=== PATIENT | male | born 1990 | race Caucasian/White ===

== ENCOUNTER 2020-11-09 05:40 | Emergency (ER) | payer BC, SELFPAY ==
[2020-11-09 05:49] VITALS: BP 144/92; PULSE 69; RESP 17; TEMP 36.1; O2SAT 98; BMI 34.7
--- NOTE | 2020-11-09 06:33 | HMH.EDGENADL ---
ED Disposition Clinical Impression: Eye foreign body Qualifiers: Encounter type: initial encounter Laterality: left Qualified Code(s): T15.92XA - Foreign body on external eye, part unspecified, left eye, initial encounter Disposition: Home, Self-Care Condition on Discharge: Good Instructions: DI for Eye Pain Referrals: PCP,No [Primary Care Provider] - - Critical Care Critical Care Time: No Attestation: On 11/09/20, the high probability of a clinically significant, sudden or life threatening deterioration of the following system(s) required my full and direct attention, intervention and personal management. The time I documented below is in addition to time spent performing reported procedures but includes the following listed in this critical care notation. Medical Decision Making - Medical Records Medical records reviewed: Yes: I reviewed the patient's medical records. - Castro Inquiry Pt receiving controlled substance: No Vital Signs: 11/09/20 05:49 Temperature 97.0 F L Temperature Source Oral Pulse Rate [Right Brachial] 69 Respiratory Rate 17 Blood Pressure [Right Arm] 144/92 H Blood Pressure Mean [Right Arm] 109 Blood Pressure Source [Right Arm] Automatic Cuff Blood Pressure Position [Right Arm] Sitting 02 Sat by Pulse Oximetry 98 Oxygen Delivery Method Room Air Medical Decision Narrative: 30-year-old male presenting for foreign object in eye. Patient has foreign sensation left eye, on examination there is no rust ring or large foreign object noted. Patient states he feel like this is in his upper eyelid, eyelids were everted no foreign object was identified. Patient had fluorescein stain performed, no evidence of of Abhinav sign, corneal abrasion, corneal ulcer. Patient had eye flushed with approximately 2 to 300cc of water, patient tolerated procedure well. Patient symptoms had improved after topical anesthetic as well as flushing of eye. Patient had return precautions provided and was discharged home General Adult HPI - General Chief complaint: Eye Problems Stated complaint: FB left eye Time Seen by Provider: 11/09/20 06:00 Mode of Arrival: Family Vehicle Limitations: No Limitations Description of Symptoms (Recalled from ER Triage Doc. by RN): pt states he has left eye pain since about 2100 last night; unsure what happened. 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 Patient did not rinse his eye out, he had some eyedrops placed by mother at bedside. Patient states that he does not have significant pain, two or 3 out of 10, patient has not had this sensation before. Denies any visual acuity deficits, no blurry vision, does not wear contacts or glasses. - Related Data Home Medications Medication Instructions Recorded Confirmed No Known Home Medications 11/09/20 11/09/20 Allergies Allergy/AdvReac Type Severity Reaction Status Date / Time No Known Allergies Allergy Unverified 08/30/17 14:53 [facility] History - Hepatitis A Screen Drug use history?: No High risk sexual behaviors?: No History of sexually transmitted infection?: No Currently employed?: No Childcare worker?: No Do you have indoor plumbing?: Yes Do you have electricity?: Yes Attestation statement:: This patient has been screened for Hepatitis A risk factors. I have reviewed the patient's past medical history: Yes ROS Obtained: Yes All systems reviewed & no additional complaints Physical Exam - General General appearance: alert, in no apparent distress - Eye Eye exam: Present: normal appearance, PERRL, EOMI, conjunctival injection,
[2020-11-09 06:40] VITALS: BP 135/74; PULSE 73; RESP 18; TEMP 36.3; O2SAT 98
== END 2020-11-09 06:49 | disposition home or self-care (01) ==
PROVIDERS: Emergency Provider Emergency Medicine
DX: T15.92XA Foreign body on external eye, part unspecified, left eye, initial encounter (principal)
CPT/HCPCS: 99281

== ENCOUNTER → 2021-08-27 07:29 | Outpatient (CLI) | payer BC, SELFPAY ==
--- NOTE | 2021-08-27 07:40 | MR_ITS ---
PROCEDURE: MR THORACIC SPINE WO CON CLINICAL INDICATION: PAIN IN THORACIC SPINE COMPARISON: CR LS5 LUMBAR SPINE 5 VIEWS from 11/27/2015 TECHNIQUE: Routine multiplanar multi echo sequences are performed without gadolinium enhancement. FINDINGS: Normal alignment. No acute fracture or dislocation. Minimal endplate irregularity involves T8 through T12 vertebral bodies. There is slight loss of height anteriorly of T12 but no abnormal signal intensity that would indicate an acute fracture. This was present on a older radiograph 11/27/2015. No disc herniations. No destructive process or paraspinal mass. There is mild facet and ligamentum hypertrophic change at T9-T10, T10-T11, and T11-T12. There is minimal left lateral recess narrowing at T10-T11. No significant foraminal narrowing. No extradural mass. The spinal cord has an unremarkable appearance. IMPRESSION: Mild degenerative changes as described above. No acute finding. No disc herniation or canal stenosis. No acute fracture. Dictated by: Nitin Coyne MD 08/28/2021 08:36 Nitin Coyne MD in [place] 08/28/2021 08:36
== END ==
PROVIDERS: Visit Provider Family Medicine
DX: M54.6 Pain in thoracic spine (principal); R52 Pain, unspecified
CPT/HCPCS: 72146

== ENCOUNTER → 2021-08-28 14:01 | Outpatient (CLI) | payer BC, SELFPAY | PROVIDERS: Visit Provider Nurse Practitioner | DX: Z20.822 Contact with and (suspected) exposure to COVID-19 (principal) | CPT/HCPCS: C9803; U0003; U0005 ==

== ENCOUNTER → 2021-08-31 20:43 | Outpatient (CLI) | payer BC, SELFPAY | PROVIDERS: Visit Provider Nurse Practitioner Family | DX: Z20.822 Contact with and (suspected) exposure to COVID-19 (principal); J02.9 Acute pharyngitis, unspecified | CPT/HCPCS: C9803; U0003; U0005 ==

== ENCOUNTER 2021-09-01 03:37 | Inpatient (IN) | payer BC, SELFPAY ==
[2021-09-01] VITALS (31 sets, daily range): BP systolic 124–160; BP diastolic 70–101; PULSE 60–88; RESP 16–20; TEMP 36.9–37.2; O2SAT 95–100; BMI 31.9; BMI 32.8
--- NOTE | 2021-09-01 | IR_ITS ---
APPROVED REPORT Patient Location: Outpatient Plant Inspector: ALBERTO Lee RT (R) PROCEDURES Left heart catheterization Left ventriculogram Selective coronary angiogram INDICATION Syncope accompanied by high risk troponin Informed consent was obtained prior to the procedure. COMPLICATIONS NONE Estimated Blood Loss: LESS THAN 10 ML TECHNIQUE One percent lidocaine used to anesthetize the right anterior aspect of the wrist. The right radial artery was accessed via the Seldinger technique. A 6 [place] sheath was placed in the right radial artery. 2.5 mg of verapamil, 800 mcg of nitroglycerin, 1mg Lidocaine and 5000 U Heparin were given through the arterial sheath. The trap catheter was also used to perform left heart catheterization, left ventriculogram and selective coronary angiogram. At the end of the procedure the sheath was removed good hemostasis was achieved using Traclet band, patient was transferred to the postop holding area in stable condition. ANGIOGRAPHIC RESULTS The left main artery Normal The left anterior descending artery Normal The circumflex artery Nondominant normal The right coronary artery Is a dominant vessel and has an anterior takeoff but otherwise angiographically normal The FARFAN ventriculogram reveals Normal 65% The left ventricular end-diastolic pressure Severely elevated at 30 to 35 mmHg IMPRESSION No angiographic evidence of atherosclerosis Anterior takeoff involving the dominant right coronary artery which is suggestive of a malignant course which could be the etiology of patient's syncope and elevated troponin Normal ejection fraction Severely elevated EDP consistent with diastolic dysfunction 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 Patient be admitted to the hospital and observed overnight and will undergo coronary artery CTA in the morning to determine if the right coronary artery has a malignant course 2. Give bisoprolol 10 mg this evening in order to achieve bradycardia for better diagnostic yield of the CTA 3. Admission with telemetry monitoring Electronically signed by : Ford Booker MD 09/01/2021 13:11:16
--- NOTE | 2021-09-01 03:54 | XR_ITS ---
PROCEDURE INFORMATION: Exam: XR Chest Exam date and time: 09/01/2021 3:54 AM Age: 31 years old Clinical indication: Patient HX: Chills, diarrhea, cough since last Tuesday. Multiple covid tests, neg results. Flu/strep neg per patient TECHNIQUE: Imaging protocol: XR of the chest. Views: 2 views. COMPARISON: CR CXR2 CHEST-AP VIEW ONLY 11/27/2015 7:25 AM FINDINGS: Lungs: Unremarkable. No consolidation. Pleural spaces: Unremarkable. No pleural effusion. No pneumothorax. Heart/Mediastinum: Unremarkable. No cardiomegaly. Bones/joints: Unremarkable. IMPRESSION: No acute findings.
--- NOTE | 2021-09-01 03:54 | ECG_ITS ---
APPROVED REPORT Exam: Resting ECG HR:81 bpm ECG Measurements Heart Rate 81 AXES MT 176 P 47 QRSd 72 QRS 45 QT 336 T 49 QTc 390 Conclusion Normal sinus rhythm Late r wave progression Abnormal ECG Electronically signed by : Calvin Samaniego MD 09/01/2021 21:01:35
[2021-09-01 04:04] LABS: MANUAL DIFFERENTIAL MANUAL DIFFERENTIAL (MANUAL DIFF)
[2021-09-01 04:10] LABS: Basophils % 0.6 % (0.1-2.0); Eosinophils # 0.1 K/mm3 (0.0-0.4); Hematocrit 45.3 % (42.0-52.0); Hemoglobin 15.8 g/dL (14.1-18.0); Lymphocytes # 1.5 K/mm3 (0.7-4.5); Lymphocytes % 21.5 % (10-50); Mean Corpuscular Hemoglobin 31.2 pg (27.0-31.2); Mean Corpuscular Volume 89.3 fl (80-94); Mean Platelet Volume 9.5 fl (7.4-10.4); Monocytes # 0.5 K/mm3 (0.1-1.0); Neutrophils # 4.9 K/mm3 (1.8-7.8); Neutrophils % 69.8 % (37.0-80.0); Platelet Count 177 K/mm3 (142-424); Red Blood Count 5.07 M/mm3 (4.60-6.20); Red Cell Distribution Width 12.9 % (11.5-17.5); White Blood Count 7.1 K/mm3 (4.8-10.8)
[2021-09-01 04:11] LABS: Alanine Aminotransferase 143 U/L (12-78); Albumin Level 4.2 g/dl (3.5-5.0); Albumin/Globulin Ratio 1.4 (1.1-1.8); Alkaline Phosphatase 67 U/L (38-126); Anion Gap 10.5 mEq/L (5-15); Aspartate Amino Transferase 76 U/L (17-59); Bilirubin,Total 1.1 mg/dl (0.2-1.3); Blood Urea Nitrogen 13 mg/dl (9-20); Calcium 8.8 mg/dl (8.4-10.2); Carbon Dioxide 30 mmol/L (22.0-30.0); Chloride 99 mmol/L (98-107); Creatinine Clearance Estimated 169 mL/min (50-200); Estimated Glomerular Filt Rate 88 ml/min (>60); GFR (African American) 107 ML/MIN (>60); Globulin 2.9 g/dL (1.3-3.2); Glucose 120 mg/dl (74-100); Potassium 3.5 mmoL/L (3.5-5.1); Sodium 136 mmol/L (136-145); Total Protein,Serum 7.1 g/dl (6.3-8.2)
[2021-09-01 04:21] LABS: Lactic Acid 0.6 mmol/L (0.7-2.1)
[2021-09-01 04:23] LABS: Troponin I 0.15 ng/ml (0.00-0.034)
[2021-09-01 04:51] LABS: Adenovirus F 40/41, stool Not Detected (NotDetected); Campylobacter Not Detected (NotDetected); Clostridium Difficile A/B, PCR Not Detected (NotDetected); Cryptosporidium Not Detected (NotDetected); Cyclospora Cayetanesis Not Detected (NotDetected); Entamoeba histolytica Not Detected (NotDetected); Enteroaggregative E coli Not Detected (NotDetected); Enteropathogenic E coli Not Detected (NotDetected); Enterotoxigenic E coli Not Detected (NotDetected); Giardia lamblia Not Detected (NotDetected); Microscopic, Urine URINE MICROSCOPIC (MICROSCOPIC); Norovirus Not Detected (NotDetected); Plesimonas Shigalloides, PCR Not Detected (NotDetected); Rotavirus A Not Detected (NotDetected); Salmonella, PCR Not Detected (NotDetected); Sapovirus Not Detected (NotDetected); Shiga-like toxin E coli Not Detected (NotDetected); Shigella Enterovasive E coli Not Detected (NotDetected); Vibrio Cholerae Not Detected (NotDetected); Vibrio, PCR Not Detected (NotDetected); Yersinia Entercolitica, PCR Not Detected (NotDetected)
[2021-09-01 05:01] LABS: Appearance,Urine CLEAR (Clear); Bilirubin,Urine Negative (Negative); Blood, Urine TRACE-L (Negative); Color,Urine DK YELLOW (Yellow); Glucose,Urine (UA) Negative (Negative); Ketones,Urine Negative (Negative); Leukocyte Esterase,Urine Negative (Negative); Nitrate,Urine Negative (Negative); Protein,Urine Negative (Negative); Specific Gravity, Urine 1.025 (1.005-1.030); Urobilinogen,Urine 0.2 EU/dl (0.2)
[2021-09-01 05:37] LABS: Bacteria,Urine Trace /lpf; WBC,Urine Occasional #/hpf (0-3)
[2021-09-01 06:02] LABS: Eosinophils % 2 % (0-3); Lymphocytes % 25 % (10-50); Monocytes % 2 % (2-9); Neutrophils % 70 % (42-76); Platelet Estimate Normal; RBC Morphology Normal; Total Cells Counted 100
--- NOTE | 2021-09-01 06:09 | HMH.EDCP ---
ED Disposition Clinical Impression: Elevated troponin, Vasovagal episode, Enteritis due to astrovirus Disposition: Admitted as Observation Condition on Discharge: Good - Critical Care Critical Care Time: No Attestation: On 09/01/21, the high probability of a clinically significant, sudden or life threatening deterioration of the following system(s) required my full and direct attention, intervention and personal management. The time I documented below is in addition to time spent performing reported procedures but includes the following listed in this critical care notation. Medical Decision Making - Medical Records Medical records reviewed: Yes: I reviewed the patient's medical records. - Castro Inquiry Pt receiving controlled substance: No Vital Signs: 09/01/21 03:40 09/01/21 04:01 09/01/21 04:41 Temperature 98.9 F Temperature Source Oral Pulse Rate 85 84 Pulse Rate [Apical] 80 Respiratory Rate 18 Blood Pressure 133/74 129/75 Blood Pressure [Right Arm] 136/80 Blood Pressure Mean Blood Pressure Mean [Right Arm] 98 Blood Pressure Source [Right Arm] Automatic Cuff Blood Pressure Position [Right Arm] Supine 02 Sat by Pulse Oximetry 99 97 97 Oxygen Delivery Method Room Air Room Air Room Air 09/01/21 05:00 09/01/21 07:16 09/01/21 07:30 Temperature Temperature Source Pulse Rate 87 80 77 Pulse Rate [Apical] Respiratory Rate Blood Pressure 138/74 146/82 H 148/80 H Blood Pressure [Right Arm] Blood Pressure Mean Blood Pressure Mean [Right Arm] Blood Pressure Source [Right Arm] Blood Pressure Position [Right Arm] 02 Sat by Pulse Oximetry 99 98 98 Oxygen Delivery Method Room Air 09/01/21 08:00 09/01/21 08:30 09/01/21 09:00 Temperature Temperature Source Pulse Rate 74 73 68 Pulse Rate [Apical] Respiratory Rate 16 16 16 Blood Pressure 140/79 160/82 H 142/75 H Blood Pressure [Right Arm] Blood Pressure Mean 100 103 97 Blood Pressure Mean [Right Arm] Blood Pressure Source [Right Arm] Blood Pressure Position [Right Arm] 02 Sat by Pulse Oximetry 98 95 99 Oxygen Delivery Method Room Air Room Air Room Air 09/01/21 09:30 09/01/21 11:48 Temperature Temperature Source Pulse Rate 79 65 Pulse Rate [Apical] Respiratory Rate 18 18 Blood Pressure 143/71 H 144/77 H Blood Pressure [Right Arm] Blood Pressure Mean 92 86 Blood Pressure Mean [Right Arm] Blood Pressure Source [Right Arm] Blood Pressure Position [Right Arm] 02 Sat by Pulse Oximetry 97 100 Oxygen Delivery Method Room Air Room Air - Lab Data Lab results reviewed: Yes: I reviewed the patient's lab results. Lab Results 09/01/21 03:50: SARS-CoV-2 (PCR) Not detected, Influenza A Untype (PCR) Not detected, Influenza Type B (PCR) Not detected 09/01/21 03:56: WBC 7.1, RBC 5.07, Hgb 15.8, Hct 45.3, MCV 89.3, MCH 31.2, MCHC 35.0, RDW 12.9, Plt Count 177, MPV 9.5, Neut % (Auto) 69.8, Lymph % (Auto) 21.5, [place] % (Auto) 7.0, Eos % (Auto) 1.0, Baso % (Auto) 0.6, Neut # (Auto) 4.9, Lymph # (Auto) 1.5, [place] # (Auto) 0.5, Eos # (Auto) 0.1, Baso # (Auto) 0.0, Total Counted 100, Neutrophils % (Manual) 70, Lymphocytes % (Manual) 25, Monocytes % (Manual) 2, Eosinophils % (Manual) 2, Basophils % (Manual) 1.0, Platelet Estimate Normal, RBC Morphology Normal 09/01/21 03:56: Sodium 136, Potassium 3.5, Chloride 99, Carbon Dioxide 30, Anion Gap 10.5, BUN 13, Creatinine 1.00, Estimated Creat Clear 169, Estimated GFR 88, Est GFR ( Amer) 107, Glucose 120 H, Calcium 8.8, Total Bilirubin 1.1, AST 76 H, ALT 143 H, Alkaline Phosphatase 67, Troponin I 0.15 H, Total Protein 7.1, Albumin 4.2, Globulin 2.9, Albumin/Globulin Ratio 1.4 09/01/21 04:03: Lactate 0.6 L 09/01/21 04:41: Urine Color Dk yellow, Urine Appearance Clear, Urine pH 6.0, Ur Specific [place] 1.025, Urine Protein Negative, Urine Glucose (UA) Negative, Urine Ketones Negative, Urine Blood Trace-l, Urine Nitrate Negative, Urine Bilirubin
[2021-09-01 06:22] LABS: Coronavirus 19, PCR Not Detected (NotDetected); Influenza A, PCR Not Detected (NotDetected); Influenza B, PCR Not Detected (NotDetected)
[2021-09-01 07:18] LABS: Astrovirus Detected (NotDetected)
--- NOTE | 2021-09-01 07:35 | PC.NURSE ---
Pt is resting comfortably in bed.
[2021-09-01 08:19] LABS: Troponin I 0.31 ng/ml (0.00-0.034)
--- NOTE | 2021-09-01 08:21 | PC.NURSE ---
notified ER MD Carroll) of critical troponin
--- NOTE | 2021-09-01 08:28 | CA_ITS ---
APPROVED REPORT EXAM: Comprehensive 2D, Doppler, and color-flow Echocardiogram Cloth Napping Supervisor: MALLORIE Romero, RVS Ht: 6 ft 1 in Wt: 242lbs BSA: 2.33 BP: 160/82 mmHg Indications: Fever, Chills, Diarrhea, Syncope, Family hx-HTN 2D Dimensions Left Atrium 3.55 cm LA Volume 33.00 mL LVOT 1.98 cm (M/F) 1.5-2.5 LA Volume Index 14.20 mL/m2 (M/F) 16-34 M-Mode Dimensions RVDd 2.71 cm (0.9-2.6) LA Diam 3.03 cm (1.9-4.0) LVDd 4.35 cm (3.5-5.7) Ao Diam 2.46 cm (2.0-3.7) LVDs 2.78 cm (3.5-5.7) IVSd 1.15 cm (0.6-1.1) PWd 0.98 cm (0.6-1.1) EF (Teich) 66.70% EPSs 0.36 cm FS 36.70% EDV (Teich) 87.20 mL TAPSE 2.26 (<1.7) ESV (Teich) 29.00 mL LV Diastology E Decel Time 120.00 (160-240 msec) E/A Ratio 1.98 MED E' 11.50 (< 7 cm/sec) MED A' 6.40 cm/s E'/MED E' Ratio 8.75 (>14) LAT E' 21.10 (<10 cm/sec) E/LAT E' Ratio 4.77 (>14) Aortic Valve LVOT Max 99.00 (70-110 cm/s) LVOT VTI 20.14 cm AoV Peak Gabe. 130.00 (50-130 cm/s) AO Peak GR. 6.80 mmHg AO Mean GR. 3.40 (<5 mmHg) AO VTI 26.77 (18-25 cm) SAM (VTI) 2.32 (2.5-4.5 cm2) Mitral Valve MV E Max Gabe. 101.00 (40-130 cm/s) MV A Velocity 51.00 (40-130 cm/s) E/A Ratio 1.98 MV Decel. Time 120.00 (160-240 ms) MV PHT 35.00 ms Pulmonary Valve PV Peak Velocity 98.00 (50-150 cm/s) Left Ventricle Left atrium is normal size, left ventricle is normal size, there is no concentric left ventricular hypertrophy, visually estimated ejection fraction 55% with no regional wall motion abnormality, diastolic parameters are within normal range. Right Ventricle Right atrium and right ventricle are normal size and contractility. Aortic Valve Aortic valve is grossly normal, there is no aortic stenosis or aortic insufficiency. Mitral Valve Mitral valve grossly normal, there is trace mitral regurgitation. Tricuspid Valve Tricuspid valve grossly normal, there is trace tricuspid regurgitation, tricuspid regurgitation jet velocity is inadequate for calculation of the right ventricular systolic pressure. Pulmonic Valve Pulmonic valve is poorly visualized. Great Vessels Aortic root is normal size. Inferior vena cava normal size normal inspiratory collapse. Pericardium No significant pericardial effusion noted. Conclusion 1. Normal left ventricular size, preserved left ventricular systolic function, visually estimated ejection fraction 55% with no regional wall motion abnormality, diastolic parameters are within normal range. 2. Trace mitral and tricuspid regurgitation. 3. No significant pericardial effusion noted. 4. Inferior vena cava is normal size with normal inspiratory collapse. Electronically signed by : aMndeep Willis MD 09/01/2021 19:50:53
--- NOTE | 2021-09-01 09:20 | PC.NURSE ---
maria antonia jackson for cardiology seeing pt
[2021-09-01 09:25] LABS: Creatine Kinase 56 U/L (55-170)
[2021-09-01 09:30] LABS: C-Reactive Protein 15.6 mg/L (0-4)
--- NOTE | 2021-09-01 09:32 | HMH.CNCARD ---
History of Present Illness Consult date: 09/01/21 Requesting physician: Josias Parker Chief complaint: Elevated troponins History of present illness: 31-year-old female presented to the emergency room after a syncopal episode in his bathroom this morning. Patient states while getting ready for work this a.m., he passed out while he was sitting on the toilet. Patient states he was only out for a few seconds per his girlfriend. Patient states for the past few days he has been complaining of chills and has had a productive cough. Cough has been accompanied with low-grade fever. Patient states he has had a negative Covid and strep test. Patient denies chest pain, tightness or pressure. Patient denies shortness of breath. No swelling noted of the lower extremity. Patient has no known history of coronary artery disease. Patient states he does have history of hypertension in which he does not take antihypertensives medications. Patient states no significant family history of coronary disease. Patient denies tobacco use. Patient states occasional alcohol consumption. EKG revealed normal sinus rhythm with a heart rate of 81 bpm. Blood pressure stable. Lab reveals elevated LFTs. Serial troponin x1 noted at 0.15. Second serial troponin was noted as 0.31. Chest x-ray reveals no acute findings. CBC is within normal values. Preliminary echocardiogram reveals EF greater than 55% with slight LVH. Waiting on official echocardiogram result. Pending on the echocardiogram results, medication and treatment therapies may be recommended. ED physician has ordered additional lab testing such as ESR and CRP. [facility] History I have reviewed the patient's past medical history: Yes *Have you ever received a pneumonia vaccine?: No *Have you received a flu vaccine this season?: No Other Surgeries: Yes: No Previous Surgery - *Social History Smoking Status: Never smoker Tobacco Type: smokeless tobacco Alcohol Intake: current Alcohol Intake Frequency:: a few times a week *Occupational Status:: employed *Travel in the last 8 weeks: Inside the [place] Family Hx:: Non-contributory Meds Home Medications Medication Instructions Recorded Confirmed Type cyclobenzaprine 10 mg tablet 10 mg PO tab 08/28/21 08/31/21 History ibuprofen 800 mg tablet 800 mg PO tab 08/28/21 08/31/21 History tizanidine 4 mg capsule 4 mg PO cap 08/28/21 08/31/21 History Allergies Allergy/AdvReac Type Severity Reaction Status Date / Time No Known Allergies Allergy Unverified 08/31/21 18:32 Exam Vital signs and Labs for Last 24 Hours: Temp Pulse Resp BP Pulse Ox 98.9 F 77 18 148/80 H 98 09/01/21 03:40 09/01/21 07:30 09/01/21 03:40 09/01/21 07:30 09/01/21 07:30 Laboratory Results - last 24 hr 09/01/21 03:50: SARS-CoV-2 (PCR) Not detected, Influenza A Untype (PCR) Not detected, Influenza Type B (PCR) Not detected 09/01/21 03:56: WBC 7.1, RBC 5.07, Hgb 15.8, Hct 45.3, MCV 89.3, MCH 31.2, MCHC 35.0, RDW 12.9, Plt Count 177, MPV 9.5, Neut % (Auto) 69.8, Lymph % (Auto) 21.5, [place] % (Auto) 7.0, Eos % (Auto) 1.0, Baso % (Auto) 0.6, Neut # (Auto) 4.9, Lymph # (Auto) 1.5, [place] # (Auto) 0.5, Eos # (Auto) 0.1, Baso # (Auto) 0.0, Total Counted 100, Neutrophils % (Manual) 70, Lymphocytes % (Manual) 25, Monocytes % (Manual) 2, Eosinophils % (Manual) 2, Basophils % (Manual) 1.0, Platelet Estimate Normal, RBC Morphology Normal 09/01/21 03:56: Sodium 136, Potassium 3.5, Chloride 99, Carbon Dioxide 30, Anion Gap 10.5, BUN 13, Creatinine 1.00, Estimated Creat Clear 169, Estimated GFR 88, Est GFR ( Amer) 107, Glucose 120 H, Calcium 8.8, Total Bilirubin 1.1, AST 76 H, ALT 143 H, Alkaline Phosphatase 67, Troponin I 0.15 H, Total Protein 7.1, Albumin 4.2, Globulin 2.9, Albumin/Globulin Ratio 1.4 09/01/21 04:03: Lactate 0.6 L 09/01/21 04:41: Urine Color Dk yellow, Urine Appearance Clear, Urine pH 6.0, Ur Specific [place] 1.025, Urine Protein Negative, Urine Glu
[2021-09-01 09:44] LABS: Procalcitonin 0.267 ng/mL (0.0-2.0)
[2021-09-01 09:49] LABS: Erythrocyte Sedimentation Rate 20 mm/hr (0-15)
--- NOTE | 2021-09-01 10:09 | PC.NURSE ---
maria antonia jackson with cardiology gave verbal order for coronary CTA per Dr. Booker request, states to let her know when results are back
--- NOTE | 2021-09-01 10:21 | PC.NURSE ---
rad notified of CT order, states she would speak with the radiologist and then call me back
--- NOTE | 2021-09-01 10:37 | PC.NURSE ---
checked with radiology to check on status of CT coronary, states she is waiting on a call back from other staff to see if they can do this test today.
[2021-09-01 10:39] LABS: Troponin I 0.41 ng/ml (0.00-0.034)
--- NOTE | 2021-09-01 10:41 | PC.NURSE ---
called and left a message with Dr. Parker office staff requested a return phone call so I can notify him of critical troponin on pt
--- NOTE | 2021-09-01 10:46 | PC.NURSE ---
notified Dr. Parker of critical troponin
--- NOTE | 2021-09-01 11:11 | PC.NURSE ---
notified maria antonia jackson that per rad staff we are unable to do CT coronary scan today.
--- NOTE | 2021-09-01 11:16 | PC.NURSE ---
maria antonia jackson from cardiology speaking with Dr. Parker at this time about POC She has let energy systems laboratory director know of pt.
--- NOTE | 2021-09-01 11:52 | PC.NURSE ---
lab technician staff at
--- NOTE | 2021-09-01 17:39 | PC.NURSE ---
radial band removed. dsg in palce c/d/i. he is aox4 able to make needs known to staff, tolerated diet well. denies n/v/d.
--- NOTE | 2021-09-01 20:08 | HMH.HP ---
*Admission Date: 09/01/21 *Chief complaint: syncope *History of present illness: this patient presented to the ed with hx of not feeling well over the last few days and had neg covid -19 and then developed nonbloody diarrhea and had a syncopal episode this am w/o chest pain - pt was seen in the ed and noted to have astrovirus enteritis but also elevated trop- pt had stable echo and was seen by card -11-year-old female presented to the emergency room after a syncopal episode in his bathroom this morning. Patient states while getting ready for work this a.m., he passed out while he was sitting on the toilet. Patient states he was only out for a few seconds per his girlfriend. Patient states for the past few days he has been complaining of chills and has had a productive cough. Cough has been accompanied with low-grade fever. Patient states he has had a negative Covid and strep test. Patient denies chest pain, tightness or pressure. Patient denies shortness of breath. No swelling noted of the lower extremity. Patient has no known history of coronary artery disease. Patient states he does have history of hypertension in which he does not take antihypertensives medications. Patient states no significant family history of coronary disease. Patient denies tobacco use. Patient states occasional alcohol consumption. EKG revealed normal sinus rhythm with a heart rate of 81 bpm. Blood pressure stable. Lab reveals elevated LFTs. Serial troponin x1 noted at 0.15. Second serial troponin was noted as 0.31. Chest x-ray reveals no acute findings. CBC is within normal values. Preliminary echocardiogram reveals EF greater than 55% with slight LVH. Waiting on official echocardiogram result. Pending on the echocardiogram results, medication and treatment therapies may be recommended. ED physician has ordered additional lab testing such as ESR and CRP. pt was taken to research laboratory technician as trop increased -C:ANGIOGRAPHIC RESULTS The left main artery Normal The left anterior descending artery Normal The circumflex artery Nondominant normal The right coronary artery Is a dominant vessel and has an anterior takeoff but otherwise angiographically normal The FARFAN ventriculogram reveals Normal 65% The left ventricular end-diastolic pressure Severely elevated at 30 to 35 mmHg IMPRESSION No angiographic evidence of atherosclerosis Anterior takeoff involving the dominant right coronary artery which is suggestive of a malignant course which could be the etiology of patient's syncope and elevated troponin Normal ejection fraction Severely elevated EDP consistent with diastolic dysfunction 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 Patient be admitted to the hospital and observed overnight and will undergo coronary artery CTA in the morning to determine if the right coronary artery has a malignant course 2. Give bisoprolol 10 mg this evening in order to achieve bradycardia for better diagnostic yield of the CTA 3. Admission with telemetry monitoring pt admitted for monitoring [facility] History I have reviewed the patient's past medical history: Yes *Have you ever received a pneumonia vaccine?: No *Have you received a flu vaccine this season?: No Other Surgeries: Yes: No Previous Surgery - *Social History Last grade of school completed: High school graduate Smoking Status: Never smoker Tobacco Type: smokeless tobacco Alcohol Intake: never Alcohol Intake Frequency:: a few times a week *Occupational Status:: employed Housing: house Household Members: family *Travel in the last 8 weeks: None Family Hx:: Non-contributory Review of Systems - Review of Systems Review of systems:: pertinent systems reviewed and negative unless documented below - Constitutional Denies fever(s) - Eyes Denies change in vision - ENT Denies sore throat - *Cardiovascular Reports lightheadedness, Denies chest pain - *Respiratory Den
[2021-09-02] VITALS (8 sets, daily range): BP systolic 115–140; BP diastolic 64–80; PULSE 67–81; RESP 14–18; TEMP 36.6–37; O2SAT 97–100; BMI 34.3
--- NOTE | 2021-09-02 05:21 | PC.NURSE ---
Patient rested well through night. VSS on RA. Denies pain. Alert, oriented x4, cooperative and able to make needs known. SR on monitor. Denies CP/SOB. Adequate intake and output. NPO since midnight for test today. Dressing to right radial site CDI, CMS intact to right upper extremity. Plan for coronary CTA today.
[2021-09-02 07:15] LABS: Basophils % 0.6 % (0.1-2.0); Eosinophils # 0.1 K/mm3 (0.0-0.4); Eosinophils % 1.9 % (0.1-12.0); Hematocrit 38.4 % (42.0-52.0); Hemoglobin 13.4 g/dL (14.1-18.0); Lymphocytes # 1.4 K/mm3 (0.7-4.5); Lymphocytes % 21.9 % (10-50); Mean Corpuscular HGB Conc 34.9 g/dL (31.8-35.4); Mean Corpuscular Hemoglobin 31.2 pg (27.0-31.2); Mean Corpuscular Volume 89.4 fl (80-94); Mean Platelet Volume 9.5 fl (7.4-10.4); Monocytes # 0.5 K/mm3 (0.1-1.0); Monocytes % 7.2 % (1.7-9.3); Neutrophils # 4.3 K/mm3 (1.8-7.8); Neutrophils % 68.3 % (37.0-80.0); Platelet Count 162 K/mm3 (142-424); Red Cell Distribution Width 13.1 % (11.5-17.5); White Blood Count 6.3 K/mm3 (4.8-10.8)
[2021-09-02 07:18] LABS: Chloride 105 mmol/L (98-107); Sodium 140 mmol/L (136-145)
[2021-09-02 07:19] LABS: Potassium 3.8 mmoL/L (3.5-5.1)
[2021-09-02 07:21] LABS: Alanine Aminotransferase 145 U/L (12-78); Albumin Level 3.7 g/dl (3.5-5.0); Albumin/Globulin Ratio 1.4 (1.1-1.8); Alkaline Phosphatase 61 U/L (38-126); Anion Gap 10.8 mEq/L (5-15); Aspartate Amino Transferase 108 U/L (17-59); Bilirubin,Total 0.8 mg/dl (0.2-1.3); Blood Urea Nitrogen 9 mg/dl (9-20); Carbon Dioxide 28 mmol/L (22.0-30.0); Cholesterol 129 mg/dl (140-200); Creatinine Clearance Estimated 227 mL/min (50-200); Estimated Glomerular Filt Rate 114 ml/min (>60); GFR (African American) 138 ML/MIN (>60); Globulin 2.6 g/dL (1.3-3.2); Total Protein,Serum 6.3 g/dl (6.3-8.2); Triglycerides 94 mg/dl (30-150); VLDL Cholesterol 19 mg/dL (0-40)
[2021-09-02 07:22] LABS: Calcium 8.3 mg/dl (8.4-10.2); Chol/HDL Ratio 5.9 (1-3.5); Glucose 92 mg/dl (74-100); HDL Cholesterol 22 mg/dl (40-60)
[2021-09-02 07:33] LABS: Direct LDL Cholesterol 79.58 mg/dL (100-129)
--- NOTE | 2021-09-02 08:00 | CT_ITS ---
PROCEDURE: CT ANGIO CORONARY ARTERY CLINCAL INDICATION: anomaly of the RCA COMPARISON: No exams were available for comparison TECHNIQUE: IV Contrast: 120 mL Isovue 370 Axial images obtained with sagittal and coronal reformats. All CT scans at the facility use one or more dose reduction, viz: automated exposure control, ma/kV adjustment per patient size (including targeted exams where dose is matched to indication, i.e. head), or iterative reconstruction technique. FINDINGS: Coronary artery calcium score is 0. Gated images are obtained. No meds were given for bradycardia as the patient's resting heart rate was in the 60s. There is no evidence of malignant course of the coronary arteries. The RCA rises slightly more medial than expected but does not course between the pulmonary artery and the aorta. The left coronary artery arises from the left coronary cusp somewhat more posterior than normal but without a malignant course. There is left-sided dominance with the LAD the dominant supply to the inferior intraventricular septum. The left main, lad, circumflex, and RCA shows no obvious stenosis or occlusion. No myocardial bridging. There is mild thickening of the superior recess of the pericardium. Minimal atelectatic changes are present in the left lower lobe. There is a 5 mm nodular opacity in the left lower lobe posteriorly nonspecific. IMPRESSION: No evidence of malignant course of the coronary arteries. Negative CTA of the coronary arteries. Nonacute findings as described above. Dictated by: Nitin Coyne MD 09/02/2021 11:51 Nitin Coyne MD in [place] 09/02/2021 11:51
--- NOTE | 2021-09-02 10:08 | HMH.PHAINT ---
verified home medication list using list from [facility]
--- NOTE | 2021-09-02 10:09 | P.CONPHA_ITS ---
[facility] Pharmacy VTE Monitoring - Patient Demographics Admission date: 09/01/21 Report Date: 09/02/21 Time: 10:09 Allergies/Adverse Reactions: Patient Allergies No Known Allergies Allergy (Unverified 08/31/21 18:32) Height: 1.85 m Weight: 117.537 kg Patient Problems: Current Active Problems Fever (Acute) Syncope (Acute) HTN (hypertension) (Acute) Elevated LFTs (Acute) Elevated troponin (Acute) Elevated troponin (Acute) Vasovagal episode (Acute) Enteritis due to astrovirus (Acute) Obesity (BMI 30-39.9) (Acute) Elevated left ventricular end-diastolic pressure (LVEDP) (Acute) - VTE Risk Labs: VTE Related Lab Results Hgb 13.4 g/dL (14.1-18.0) L 09/02/21 06:03 Hct 38.4 % (42.0-52.0) L 09/02/21 06:03 Plt Count 162 K/mm3 (142-424) 09/02/21 06:03 BUN 9 mg/dl (9-20) D 09/02/21 06:03 Creatinine 0.80 mg/dl (0.66-1.25) 09/02/21 06:03 Estimated Creat Clear 227 mL/min (50-200) 09/02/21 06:03 Clinical Trial Participant: No - Prophylaxis VTE Prophylaxis Ordered?: Yes Types of VTE Prophylaxis: TEDS Knee High
--- NOTE | 2021-09-02 11:00 | HMH.PNCARD ---
Subjective Date: 09/02/21 Time: 09:00 Principal diagnosis: Non stemi Interval history: 31-year-old male admitted to [facility] with non-STEMI on 09/01/2021. Patient had been complaining of fever and chills prior to arrival to the ED. Patient stated he also had a syncopal episode while he was in the restroom yesterday morning. Patient was noted to have elevated troponins. Patient did undergo left heart catheterization yesterday which revealed no angiographic evidence of atherosclerosis. Anterior takeoff involving the dominant RCA which is suggestive of malignant course which could be the etiology of patient's syncopal and elevated troponin. Normal ejection fraction. 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 Coronary artery CTA was performed this morning. Awaiting results. Echocardiogram reveals EF 55% with no regional wall motion abnormality. Trace of mitral and tricuspid valve regurgitation. Pending on the results of the coronary artery CTA, medication and treatment therapies may be recommended. Patient denies chest pain, tightness or pressure. Patient denies shortness of breath. Patient states he is feeling much better. Vital signs are stable. bus driver/monitor reveals sinus rhythm with no ectopy. Echo:Conclusion 1. Normal left ventricular size, preserved left ventricular systolic function, visually estimated ejection fraction 55% with no regional wall motion abnormality, diastolic parameters are within normal range. 2. Trace mitral and tricuspid regurgitation. 3. No significant pericardial effusion noted. 4. Inferior vena cava is normal size with normal inspiratory collapse. LHC:ANGIOGRAPHIC RESULTS The left main artery Normal The left anterior descending artery Normal The circumflex artery Nondominant normal The right coronary artery Is a dominant vessel and has an anterior takeoff but otherwise angiographically normal The FARFAN ventriculogram reveals Normal 65% The left ventricular end-diastolic pressure Severely elevated at 30 to 35 mmHg IMPRESSION No angiographic evidence of atherosclerosis Anterior takeoff involving the dominant right coronary artery which is suggestive of a malignant course which could be the etiology of patient's syncope and elevated troponin Normal ejection fraction Severely elevated EDP consistent with diastolic dysfunction 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 Patient be admitted to the hospital and observed overnight and will undergo coronary artery CTA in the morning to determine if the right coronary artery has a malignant course 2. Give bisoprolol 10 mg this evening in order to achieve bradycardia for better diagnostic yield of the CTA 3. Admission with telemetry monitoring Exam Vital signs and Labs for Last 24 Hours: Temp Pulse Resp BP Pulse Ox 98.2 F 69 14 140/80 100 09/02/21 08:00 09/02/21 08:00 09/02/21 08:00 09/02/21 08:00 09/02/21 08:00 Laboratory Results - last 24 hr 09/02/21 06:03: WBC 6.3, RBC 4.30 L, Hgb 13.4 L, Hct 38.4 L, MCV 89.4, MCH 31.2, MCHC 34.9, RDW 13.1, Plt Count 162, MPV 9.5, Neut % (Auto) 68.3, Lymph % (Auto) 21.9, [place] % (Auto) 7.2, Eos % (Auto) 1.9, Baso % (Auto) 0.6, Neut # (Auto) 4.3, Lymph # (Auto) 1.4, [place] # (Auto) 0.5, Eos # (Auto) 0.1, Baso # (Auto) 0.0 09/02/21 06:03: Sodium 140, Potassium 3.8, Chloride 105, Carbon Dioxide 28, Anion Gap 10.8, BUN 9 D, Creatinine 0.80, Estimated Creat Clear 227, Estimated GFR 114, Est GFR ( Amer) 138 D, Glucose 92, Calcium 8.3 L, Total Bilirubin 0.8, AST 108 H D, ALT 145 H, Alkaline Phosphatase 61, Total Protein 6.3, Albumin 3.7 D, Globulin 2.6, Albumin/Globulin Ratio 1.4, Triglycerides 94, Cholesterol 129 L, LDL Cholesterol Direct 79.58 L, VLDL Cholesterol 19, HDL Cholesterol 22 L, Cholesterol/HDL Ratio 5.9 H I & O for Last
--- NOTE | 2021-09-02 13:15 | HMH.ACPN2 ---
Internal Medicine - PN: Subj *Date: 09/02/21 *Time: 09:10 Interval history: pt states no pain, Exam Vital signs and Labs for Last 24 Hours: Temp Pulse Resp BP Pulse Ox 98.6 F 67 16 133/69 98 09/02/21 11:43 09/02/21 11:43 09/02/21 11:43 09/02/21 11:43 09/02/21 11:43 Laboratory Results - last 24 hr 09/02/21 06:03: WBC 6.3, RBC 4.30 L, Hgb 13.4 L, Hct 38.4 L, MCV 89.4, MCH 31.2, MCHC 34.9, RDW 13.1, Plt Count 162, MPV 9.5, Neut % (Auto) 68.3, Lymph % (Auto) 21.9, [place] % (Auto) 7.2, Eos % (Auto) 1.9, Baso % (Auto) 0.6, Neut # (Auto) 4.3, Lymph # (Auto) 1.4, [place] # (Auto) 0.5, Eos # (Auto) 0.1, Baso # (Auto) 0.0 09/02/21 06:03: Sodium 140, Potassium 3.8, Chloride 105, Carbon Dioxide 28, Anion Gap 10.8, BUN 9 D, Creatinine 0.80, Estimated Creat Clear 227, Estimated GFR 114, Est GFR ( Amer) 138 D, Glucose 92, Calcium 8.3 L, Total Bilirubin 0.8, AST 108 H D, ALT 145 H, Alkaline Phosphatase 61, Total Protein 6.3, Albumin 3.7 D, Globulin 2.6, Albumin/Globulin Ratio 1.4, Triglycerides 94, Cholesterol 129 L, LDL Cholesterol Direct 79.58 L, VLDL Cholesterol 19, HDL Cholesterol 22 L, Cholesterol/HDL Ratio 5.9 H I & O for Last 24 hours: Intake & Output 08/31/21 09/01/21 09/02/21 09/03/21 11:59 11:59 11:59 11:59 Intake Total 1987 240 / 240 Balance 1987 240 / 240 Weight 242 lb 259 lb 2 oz - Constitutional no acute distress - *Routine HEENT Exam Head: Present: normocephalic Eye: Present: PERRL ENT: Present: mucous membranes moist - *Routine Neck Exam Present: supple. Absent: lymphadenopathy - *Routine Respiratory Exam Present: CTA bilaterally - *Routine Cardiovascular Exam Present: RRR - *Routine Abdominal Exam Present: soft, normoactive bowel sounds. Absent: tenderness - *Routine Extremities Exam Absent: cyanosis, clubbing, edema - *Routine Skin Exam Present: warm. Absent: rash - *Routine Neurological Exam Present: alert, oriented X3 Assessment and Plan (1) Fever Status: Acute Category: Medical Code(s): R50.9 - Fever, unspecified (2) Syncope Status: Acute Category: Medical Code(s): R55 - Syncope and collapse (3) HTN (hypertension) Status: Acute Category: Medical Code(s): I10 - Essential (primary) hypertension (4) Elevated LFTs Status: Acute Category: Medical Code(s): R79.89 - Other specified abnormal findings of blood chemistry (5) Elevated troponin Status: Acute Category: Medical Code(s): R77.8 - Other specified abnormalities of plasma proteins (6) Obesity (BMI 30-39.9) Status: Acute Category: Medical Code(s): E66.9 - Obesity, unspecified (7) Enteritis due to astrovirus Status: Acute Category: Medical Code(s): A08.32 - Astrovirus enteritis (8) Elevated left ventricular end-diastolic pressure (LVEDP) Status: Acute Category: Medical Code(s): R94.30 - Abnormal result of cardiovascular function study, unspecified - Assessment and plan all Dx Assessment and Plan for all problems:: rounded with dr henderson all orders per dr beatriz barker dc in am
--- NOTE | 2021-09-02 13:16 | HMH.DCSUM ---
General - General Admission date:: 09/01/21 <Josias Parker - 09/02/21 22:27> 09/01/21 <Bassam Monteiro - 09/02/21 13:18> Discharge date: 09/02/21 <Bassam Monteiro - 09/02/21 13:18> HPI HPI: this patient presented to the ed with hx of not feeling well over the last few days and had neg covid -19 and then developed nonbloody diarrhea and had a syncopal episode this am w/o chest pain - pt was seen in the ed and noted to have astrovirus enteritis but also elevated trop- pt had stable echo and was seen by card -11-year-old female presented to the emergency room after a syncopal episode in his bathroom this morning. Patient states while getting ready for work this a.m., he passed out while he was sitting on the toilet. Patient states he was only out for a few seconds per his girlfriend. Patient states for the past few days he has been complaining of chills and has had a productive cough. Cough has been accompanied with low-grade fever. Patient states he has had a negative Covid and strep test. Patient denies chest pain, tightness or pressure. Patient denies shortness of breath. No swelling noted of the lower extremity. Patient has no known history of coronary artery disease. Patient states he does have history of hypertension in which he does not take antihypertensives medications. Patient states no significant family history of coronary disease. Patient denies tobacco use. Patient states occasional alcohol consumption. EKG revealed normal sinus rhythm with a heart rate of 81 bpm. Blood pressure stable. Lab reveals elevated LFTs. Serial troponin x1 noted at 0.15. Second serial troponin was noted as 0.31. Chest x-ray reveals no acute findings. CBC is within normal values. Preliminary echocardiogram reveals EF greater than 55% with slight LVH. Waiting on official echocardiogram result. Pending on the echocardiogram results, medication and treatment therapies may be recommended. ED physician has ordered additional lab testing such as ESR and CRP. 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 trop increased -C:ANGIOGRAPHIC RESULTS The left main artery Normal The left anterior descending artery Normal The circumflex artery Nondominant normal The right coronary artery Is a dominant vessel and has an anterior takeoff but otherwise angiographically normal The FARFAN ventriculogram reveals Normal 65% The left ventricular end-diastolic pressure Severely elevated at 30 to 35 mmHg IMPRESSION No angiographic evidence of atherosclerosis Anterior takeoff involving the dominant right coronary artery which is suggestive of a malignant course which could be the etiology of patient's syncope and elevated troponin Normal ejection fraction Severely elevated EDP consistent with diastolic dysfunction 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 Patient be admitted to the hospital and observed overnight and will undergo coronary artery CTA in the morning to determine if the right coronary artery has a malignant course 2. Give bisoprolol 10 mg this evening in order to achieve bradycardia for better diagnostic yield of the CTA 3. Admission with telemetry monitoring pt admitted for monitoring <Bassam Monteiro - 09/02/21 13:18> Hospital Course Hospital Course: Laboratory Tests 09/01/21 09/01/21 09/01/21 03:50 03:56 03:56 WBC 7.1 RBC 5.07 Hgb 15.8 Hct 45.3 MCV 89.3 MCH 31.2 MCHC 35.0 RDW 12.9 Plt Count 177 MPV 9.5 Neut % (Auto) 69.8 Lymph % (Auto) 21.5 [place] % (Auto) 7.0 Eos % (Auto) 1.0 Baso % (Auto) 0.6 Neut # (Auto) 4.9 Lymph # (Auto) 1.5 [place] # (Auto) 0.5 Eos # (Auto) 0.1 Baso # (Auto) 0.0 Total Counted 100 Neutrophils % (Manual) 70 Lymphocytes % (Manual) 25 Monocytes % (Manual) 2 Eosinophils % (Manual) 2 Basophils % (Manual) 1.0 Platelet Estimate Normal RBC Morphology Normal ESR Sodium 13
== END 2021-09-02 14:14 | disposition home or self-care (01) | DRG 281 ==
LOC: ER 12:01 → 2ND 13:15
PROVIDERS: Internal Medicine; Admitting Provider Emergency Medicine; Emergency Provider Emergency Medicine; PCP Nurse Practitioner Family; Visit Provider Emergency Medicine
PROC: 4A023N7 Measurement of Cardiac Sampling and Pressure, Left Heart, Percutaneous Approach (ICD-10-PCS; principal; 2021-09-01 12:00)
DX: I21.4 Non-ST elevation (NSTEMI) myocardial infarction (principal); A08.32 Astrovirus enteritis; R55 Syncope and collapse; I10 Essential (primary) hypertension; F17.220 Nicotine dependence, chewing tobacco, uncomplicated; Z71.6 Tobacco abuse counseling; Z20.822 Contact with and (suspected) exposure to COVID-19; E66.9 Obesity, unspecified; Z68.34 Body mass index [BMI] 34.0-34.9, adult; R79.89 Other specified abnormal findings of blood chemistry
CPT/HCPCS: 71046; 75574; 80053; 80061; 81001; 82550; 83605; 84145; 84484; 85007; 85014; 85018; 85025; 85048; 85049; 85651; 86140; 87040; 87507; 93005; 93306; 93458; 96365; 96367; 99152; 99285; C1725; C1760; C1769; C9803; J1644; Q9967; U0003; U0005

== ENCOUNTER → 2023-04-15 17:32 | Outpatient (CLI) | payer BC, SELFPAY | PROVIDERS: PCP Emergency Medicine; Visit Provider Nurse Practitioner Family | DX: G47.33 Obstructive sleep apnea (adult) (pediatric) (principal); G47.00 Insomnia, unspecified; R06.83 Snoring; R53.83 Other fatigue; I10 Essential (primary) hypertension | CPT/HCPCS: G0399 ==

== ENCOUNTER 2025-05-14 16:14 | Outpatient (CLI) | payer BC, SELFPAY ==
[2025-05-14 20:06] LABS: Influenza A, PCR Not Detected (NotDetected); Influenza B, PCR Not Detected (NotDetected)
[2025-05-14 21:14] LABS: Coronavirus 19, PCR Detected (NotDetected)
--- OUTSIDE RECORDS SUMMARY | 2025-05-16 12:36 | XMS_ITS | Clinical Summary ---
Author Organization [facility] Address [address] [place] [id number] Phone [email or web address] Team Providers Care Microsystems Engineer Name Role Phone Unavailable Primary Care Provider Unavailabl e Active Problems Problem Noted Date Diagnosed Date Need for prophylactic vaccin ation and inoculation against influenza 07/04/2013 Overview (05/27/2021): Resolved Problems Problem Noted Date Diagnosed Date Resolved Date Encounter for screening, unspecified 08/24/2018 07/26/2022 Overview (05/27/2021): Immunizations Immunization Administration Dates Next Due Influenza multi-dose VIAL (A fluria,Fluzone) trivalent (CVX-141) 07/04/2013 Social History Tobacco Use Types Packs/Day Years Used Date Smoking Tobacco: Never Assessed Intimate Partner Violence Answer Date R ecorded Insults You Not on file 05/31/2021 Threatens You Not on file 05/31/2021 Screams at You Not on file 05/31/2021 Physically Hurt Not on file 05/31/2021 Intimate Partner Violence Score Not on file 05/31/2021 Stress Answer Date Recorded Stress in your Life Not on file 07/18/2024 Dealing with Stress 3 07/18/2024 Sex and Gender Information Value Date Recorded Sex Assigned at Not on file Legal Sex Male 12:55 PM CDT Gender Identity Not on file Sexual Orientation Not on file Last Filed Vital Signs Vital Sign Reading Time Taken Comments Blood Pressure 120/66 07/23/2022 10:20 AM EST Pulse 74 07/23/2022 10:20 AM EST Temperature - - Respiratory Rate - - Oxygen Saturation - - Inhaled Oxygen Concentration - - Weight 108 kg (238 lb) 07/23/2022 10:20 AM EST Height 182.9 cm (6') 07/23/2022 10:20 AM EST Body Mass Index 32.28 07/23/2022 10:20 AM EST Plan of Treatment Health Maintenance Due Date Last Done Comments Dental Cleaning/Exam 1992 HIV Screening 1992 Hepatitis C Screening 1992 HPV Immunization (1 - Male 3 -dose series) 2007 Annual Preventive Exam 2010 Hep B Infection Screening - Triple Screen 2010 Hepatitis B Immunization (1 of 3 - 19+ 3-dose series) 2011 Tetanus Diphtheria and Pertu ssis Immunization (1 - Tdap) 2011 Covid-19 Immunization (1 - 2 25 season) 2025 Influenza Immunization (#1) 2025 07/04/2013 HIB Immunization Aged Out No longer e ligible based on patient's age to complete this topic Hepatitis A Immunization Aged Out No longer eligible based on patient's age to complete this topic Pneumococcal: Ped (0 to 5 Yr s) and At-Risk Member (6 to 64 Yrs) Aged Out No longer e ligible based on patient's age to complete this topic Polio Immunization Aged Out No longer eligible based on patient's age to complete this topic Varicella Immunization Aged Out No lo nger eligible based on patient's age to complete this topic Insurance [employer]AY NB
== END 2025-05-14 23:59 | disposition home or self-care (01) ==
LOC: LAB.DROPOF 05-16 12:34
PROVIDERS: PCP Student in an Organized Health Care Education/Training Program; Visit Provider Student in an Organized Health Care Education/Training Program
DX: R52 Pain, unspecified (principal)
CPT/HCPCS: 87636